=== PATIENT | female | born 1945 | race Caucasian/White ===

== ENCOUNTER 2017-07-16 10:52 | Inpatient (IN) | payer OTHER ==
[~2017-07-16] VITALS: Ht 157.5 cm; Wt 74.8 kg
[2017-07-16] MEDS ORDERED: COZAAR50 MG PO (12:23)
== END 2017-07-20 13:05 | DRG 735 ==
LOC: OB/GYN 07-18 05:47 → O/R 07-18 05:47 → OB/GYN 07-18 10:36
PROVIDERS: Obstetrics & Gynecology Gynecologic Oncology
PROC: 07TC0ZZ Resection of Pelvis Lymphatic, Open Approach (ICD-10-PCS; 2017-07-18)
PROC: 0UT70ZZ Resection of Bilateral Fallopian Tubes, Open Approach (ICD-10-PCS; 2017-07-18)
PROC: 0UT20ZZ Resection of Bilateral Ovaries, Open Approach (ICD-10-PCS; 2017-07-18)
PROC: 0UTG0ZZ Resection of Vagina, Open Approach (ICD-10-PCS; 2017-07-18)
PROC: 0UT90ZZ Resection of Uterus, Open Approach (ICD-10-PCS; principal; 2017-07-18 12:00)
DX: D26.0 Other benign neoplasm of cervix uteri (principal); N83.292 Other ovarian cyst, left side; N83.291 Other ovarian cyst, right side